=== PATIENT | male | born 1970 | race Caucasian/White ===

== ENCOUNTER 2022-06-02 10:24 | Outpatient (CLI) | payer OTHER, SELFPAY ==
[2022-06-02 18:48] LABS: Cholesterol* 169 mg/dL (90-199); HDL Cholesterol* 41 mg/dL (>=40); LDL Cholesterol Calculated 97 mg/dL (<100); Triglycerides* 154 mg/dL (40-149)
[2022-06-02 19:23] LABS: PSA Screen* 0.41 ng/mL (0.10-4.00)
== END 2022-06-02 10:25 | disposition home or self-care (01) ==
PROVIDERS: PCP Family Medicine; Visit Provider Family Medicine
DX: Z12.5 Encounter for screening for malignant neoplasm of prostate (principal); Z13.6 Encounter for screening for cardiovascular disorders
CPT/HCPCS: 80061; 84153

== ENCOUNTER 2023-09-07 16:40 | Outpatient (CLI) | payer OTHER, SELFPAY ==
--- NOTE | 2023-09-07 17:00 | CRLHL7_ITS ---
For Patients: As a result of the Cures Act, medical imaging exams and procedure reports are released immediately into your electronic medical record. You may view this report before your referring provider. If you have questions, please contact your health care provider. Indication: Localized swelling, mass and lump, neck Technique: Grayscale and color Doppler ultrasound of the soft tissues within the posterior scalp. Comparison: None Findings: Sonogram is limited due to the presence of hair. There does appear to be prominence of the subcutaneous fat without abnormal vascularity or measurable mass. Impression: Unencapsulated lipoma suspected. Dictated by Shin Vo MD @ 09/08/2023 9:22:18 AM (Electronically Signed)
== END 2023-09-07 16:41 | disposition home or self-care (01) ==
LOC: US 16:41
PROVIDERS: PCP Family Medicine; Visit Provider Surgery
DX: R22.1 Localized swelling, mass and lump, neck (principal)
CPT/HCPCS: 76536

== ENCOUNTER 2023-10-18 15:12 | Outpatient (CLI) | payer OTHER, SELFPAY | END 2023-10-18 15:13 | disposition home or self-care (01) | LOC: LKVREF 15:14 | PROVIDERS: PCP Family Medicine; Visit Provider Family Medicine | DX: Z01.818 Encounter for other preprocedural examination (principal) | CPT/HCPCS: 80048 ==

== ENCOUNTER 2023-11-07 07:41 | Day surgery (SDC) | payer OTHER, SELFPAY ==
[2023-11-07] VITALS (13 sets, daily range): BP systolic 116–132; BP diastolic 73–98; PULSE 72–95; RESP 14–26; TEMP 36.3–36.7; O2SAT 93–96; BMI 32.4
[2023-11-07] MEDS: LACTATED RINGERS 1000 ML 1,000 ML 100 ML IV (07:45)
[2023-11-07] MEDS: SODIUM CHLORIDE 0.9 % (FLUSH) 10 ML SYRINGE IVF (08:15)
[2023-11-07] MEDS: CEFAZOLIN 2 GM INJ IVP (09:00)
[2023-11-07] MEDS: BUPIVACAINE 0.25% 30 ML 6 ML INJECTION (09:37)
--- NOTE | 2023-11-07 10:11 | PM.GSPRC ---
Operative Note Date of procedure: 11/07/23 Pre-op diagnosis: 1. Symptomatic posterior scalp mass. Post-op diagnosis: 1. Posterior scalp lipoma. Type of Procedure: 1. Excision of posterior scalp lipoma 6.5 x 4 cm. Indications: 53-year-old male presented to clinic for evaluation of a an enlarging posterior scalp mass. He initially noticed it several years ago. With time it has been increasing in size. He did not notice any pain in the mass. On clinical exam in the posterior basilar scalp there was a horizontally oriented subcutaneous mass that was measuring approximately 7 x 3.5 cm. This was somewhat mobile and was suspicious for lipoma. Ultrasound of this mass was obtained and showed prominent subcutaneous fat most likely lipoma. Given his clinical history and his physical exam, excision of this mass in the operating room was recommended. The procedure was discussed in detail. The risks associated procedure including infection, bleeding, seroma, and mass recurrence, as well as numbness of the scalp skin were all discussed with the patient, and he agreed to proceed. Procedure Description: After discussing the risks and benefits of the procedure, the patient signed informed consent.? The operative site was marked and the patient was brought to the operating room. Patient was intubated by anesthesia and then placed prone on the operating table with all pressure points padded. The operative site was then prepped and draped in the usual sterile fashion.? A time-out was then performed. Local anesthetic was injected at the surgical site. A horizontally oriented elliptical skin incision was made in the posterior scalp at the superior hairline and at the superior edge of the mass with a scalpel. Subcutaneous tissues and dermis were divided with cautery. The subcutaneous fatty appearing mass was identified and dissected circumferentially from adjacent subdermal fat with cautery. The mass was tightly adherent to the muscle fascia and that was shaved off muscle fascia with cautery. The mass was removed and was measuring 6.5 x 4 cm. It was sent to pathology. Additional local anesthetic was then injected in the surgical site. The incision was then closed in layers with interrupted 2-0 and 3-0 Vicryl sutures. The length of the incision was 10 cm. The skin was closed with a running 4-0 Monocryl stitch. Dermabond was then placed over the incision. The patient was then woken and transported to the recovery area in stable condition. ? The patient tolerated the procedure well. Findings: Posterior scalp lipoma. Anesthesia: GETA Surgeon: Payton Patel MD Estimated blood loss (mL): 5 Additional Specimen Information: 1. Posterior scalp mass. Condition: stable Disposition: PACU
--- NOTE | 2023-11-07 10:13 | W.ANESCHARGE ---
Anesthesia Charges Start Date/Time Anesthesia Start Date: 11/07/23 Anesthesia Start Time: 08:57 Stop Date/Time Anesthesia Stop Date: 11/07/23 Anesthesia Stop Time: 10:10
--- NOTE | 2023-11-07 10:19 | W.ANESCHARGE ---
Anesthesia Charges Start Date/Time Anesthesia Start Date: 11/07/23 Anesthesia Start Time: 08:57 Stop Date/Time Anesthesia Stop Date: 11/07/23 Anesthesia Stop Time: 10:10
--- NOTE | 2023-11-07 10:42 | SUR.PHASEI ---
patient met discharge criteria per anesthesia
== END 2023-11-07 11:40 | disposition home or self-care (01) ==
PROVIDERS: PCP Family Medicine; Visit Provider Surgery
PROC: (CPT 11426; principal; 2023-11-07 09:00)
DX: D17.0 Benign lipomatous neoplasm of skin and subcutaneous tissue of head, face and neck (principal)
CPT/HCPCS: 11426; 00300; 88304; J0330; J0665; J0690; J1100; J1885; J2250; J2405; J2704; J3010; J7120

== ENCOUNTER 2023-12-28 08:51 | Outpatient (CLI) | payer OTHER, SELFPAY | END 2023-12-28 08:52 | disposition home or self-care (01) | LOC: LKVREF 08:52 | PROVIDERS: PCP Family Medicine; Visit Provider Family Medicine | DX: Z01.818 Encounter for other preprocedural examination (principal) | CPT/HCPCS: 80048 ==

== ENCOUNTER 2024-02-09 14:30 | Outpatient (RCR) | payer OTHER, SELFPAY | END 2024-04-10 16:26 | disposition home or self-care (01) | PROVIDERS: PCP Family Medicine; Visit Provider Orthopaedic Surgery | DX: M25.561 Pain in right knee (principal); Z96.651 Presence of right artificial knee joint; M25.661 Stiffness of right knee, not elsewhere classified; R26.2 Difficulty in walking, not elsewhere classified; Z51.89 Encounter for other specified aftercare | CPT/HCPCS: 97110; 97112; 97140; 97162; 97530 ==

== ENCOUNTER 2024-03-13 13:20 | Outpatient (CLI) | payer OTHER, SELFPAY | END 2024-03-13 13:21 | disposition home or self-care (01) | LOC: LKVREF 13:21 | PROVIDERS: PCP Family Medicine; Visit Provider Family Medicine | DX: Z01.818 Encounter for other preprocedural examination (principal) | CPT/HCPCS: 80048 ==

== ENCOUNTER 2024-05-18 13:00 | Outpatient (RCR) | payer OTHER, SELFPAY | END 2024-05-18 17:43 | disposition home or self-care (01) | PROVIDERS: PCP Family Medicine; Visit Provider Orthopaedic Surgery | DX: Z96.652 Presence of left artificial knee joint (principal); Z51.89 Encounter for other specified aftercare | CPT/HCPCS: 97110; 97140; 97162 ==

== ENCOUNTER 2024-06-15 15:40 | Outpatient (CLI) | payer OTHER, SELFPAY ==
[2024-06-15 16:34] LABS: C Reactive Protein* < 0.5 mg/dL (0.5-1.0)
[2024-06-15 16:44] LABS: Erythrocyte SedimentationRate* 2 mm/hr (2-15)
== END 2024-06-15 15:41 | disposition home or self-care (01) ==
LOC: LAB 15:41
PROVIDERS: PCP Family Medicine; Visit Provider Orthopaedic Surgery
DX: M71.20 Synovial cyst of popliteal space [Baker], unspecified knee (principal); M25.562 Pain in left knee
CPT/HCPCS: 36415; 85651; 86140